=== PATIENT | female | born 1965 | race Caucasian/White ===

== ENCOUNTER 2020-02-16 23:11 | Emergency (ER) | payer OTHER ==
[2020-02-16 23:26] VITALS: BP 150/94; PULSE 79
[2020-02-17] MEDS ORDERED: Benztropine 1 MG Tab PO STA (00:03)
[2020-02-17] MEDS ORDERED: Ondansetron 4 MG/2 ML SDV IVPUSH ONE (00:03)
[2020-02-17] MEDS ORDERED: Sodium Chloride 0.9% 1,000 ML IV ONE (00:03)
[2020-02-17] MEDS ORDERED: Haloperidol Lactate 5 MG/ML SDV IM ONE (00:03)
--- NOTE | 2020-02-17 00:08 | EDM.PDOC ---
ED HPI GENERAL MEDICAL PROBLEM - General Chief Complaint: Allergic Reaction Stated Complaint: HEADACHE/NAUSEA Time Seen by Provider: 02/16/20 23:21 Source of Information: Reports: Patient History Limitations: Reports: No Limitations - History of Present Illness INITIAL COMMENTS - FREE TEXT/NARRATIVE: Mrs. Medina is a very pleasant 54-year-old woman with a past medical history sig nificant for migraine headaches, who now presents to the ED with a concern of a possible allergic reaction. She states that she notes relatively mild migraines about every 2 months, with her last bad migraine back in 05/27/2016, at which time she was seen by me in this ED. A CT of her head at that time was negative, and her symptoms improved after IM Haldol, confirming a migrainous etiology of her headache. She was prescribed rizatriptan, which she still takes, and ordinarily works, however, she states that she developed a migraine this past , 02/12/2020, which has persisted ever since. She feels a sharp pain across her forehead. Her headache feels better if she is supine, otherwise, she has not identified any modifiers. She has had photophobia and mild photophobia. She has had nausea. Her current headache is the same as her usual migraines, except that this one did not respond to rizatriptan, and has persisted longer than usual. Because the rizatriptan was not working for her, she was seen at the walk-in clinic this past 02/15/2020, where she was prescribed prednisone 20 mg p.o. BID. She took 1 dose on Sunday afternoon, another dose at 2:00 this morning, then a third dose at 2:00 this afternoon, without any significant improvement of her symptoms, however, she then developed a tingling sensation in her mouth this evening. She felt like the inside of her mouth was swollen, however, both the tingling in the swelling sensation resolved prior to her arrival to the ED. No prior similar symptoms. Here in the ED, the patient's initial BP is found to be mildly elevated at 150/94, otherwise, she is hemodynamically stable, afebrile, saturating 94% on room air. Other than her migraine headache and associated symptoms, the patient denies having a recent fever, chills, sore throat, ear pain, nasal or sinus congestion, cough, dyspnea, chest pain, palpitations, nausea, vomiting, constipation, diarrhea, abdominal pain, urinary symptoms, recent weight gain or weight loss, recent bloody bowel movements or black bowel movements, recent joint aches, or rashes. The patient's PCP is Erum Childs NP. Treatments CHIROPRACTIC PRACTICE MANAGER: Reports: NSAIDS, Other Medication(s) Headache Pain Score (Numeric/FACES): 8 - Related Data Allergies Allergy/AdvReac Type Severity Reaction Status Date / Time Penicillins Allergy Rash Verified 02/16/20 23:18 pseudoephedrine HCl Allergy Excitabilit Verified 02/16/20 23:18 [From Actifed] y triprolidine HCl Allergy Excitabilit Verified 02/16/20 23:18 [From Actifed] y Home Meds: Home Meds Enalapril [Vasotec] 5 mg PO DAILY 05/29/15 [History] Ibuprofen 600 mg PO BID PRN 05/29/15 [History] Levothyroxine Sodium 100 mcg PO DAILY 05/29/15 [History] Cholecalciferol (Vitamin D3) [Vitamin D] 1 tab PO DAILY 05/27/16 [History] Multivitamin [Multivitamins] 1 tab PO DAILY 05/27/16 [History] [place]-3 Fatty Acids [Fish Oil] 1 tab PO DAILY 05/27/16 [History] Rizatriptan Benzoate [Rizatriptan] 1 tab PO Q2H PRN #3 tab.rapdis 05/27/16 [Rx] predniSONE [Prednisone] 20 mg PO ASDIRECTED 02/16/20 [History] Past Medical History HEENT History: Reports: Impaired Vision Cardiovascular History: Reports: Hypertension Musculoskeletal History: Reports: Osteoarthritis Neurological History: Reports: Migraines Endocrine/Metabolic History: Reports: Hypothyroidism (following partial thyroidectomy) - Infectious Disease History Infectious Disease History: Reports: Chicken Pox, Mumps - Past Surgical History HEENT Surgical History: Reports: Oral Surgery (dental extractions), Tonsillectomy GI Surgical History: Reports: Hernia, Inguinal (right, at 5 mos old) Female Surgical History: Reports: Section (x 1) Endocrine Surgical History: Reports: Thyroidectomy (partial) Social & Family History - Family History Family Medical History: Noncontributory Cardiac: Reports: Hypertension Oncologic: Reports: Pancreatic - Tobacco Use Tobacco Use Status *Q: Never Tobacco User - Caffeine Use Caffeine Use: Reports: Coffee - Alcohol Use Alcohol Use History: Yes Alcohol Use Frequency: Socially - Recreational Drug Use Recreational Drug Use: No - Living Situation & Occupation Living situation: Reports: , with Spouse Occupation: Retired ED ROS GENERAL - Review of Systems Review Of Systems: Comprehensive ROS is negative, except as noted in HPI. - Physical Exam Exam: See Below Exam Limited By: No Limitations General Appearance: Alert, WD/WN, No Apparent Distress Eye Exam: Bilateral Eye: EOMI, Normal Inspection, PERRL Ears: Normal External Exam, Hearing Grossly Normal Nose: Normal Inspection Throat/Mouth: Normal Inspection, Normal Lips (No lip swelling), Normal Teeth, Normal Gums, Normal Oropharynx (No uvular swelling), Normal Voice, No Airway Compromise Head Exam: Atraumatic, Normocephalic Neck: Normal Inspection, Full Range of Motion Respiratory/Chest: No Respiratory Distress, Lungs Clear, Normal Breath Sounds, No Accessory Muscle Use Cardiovascular: Normal Peripheral Pulses, Regular Rate, Rhythm, No Edema, No Gallop, No JVD, No Murmur, No Rub GI/Abdominal: Normal Bowel Sounds, Soft, Non-Tender, No Organomegaly, No Distention, No Abnormal Bruit, No Mass Neuro Exam (Abbreviated): Alert, Oriented, CN II-XII Intact, Normal Cognition, No Motor/Sensory Deficits Back Exam: Normal Inspection, Full Range of Motion, NT Extremities: Normal Inspection, Normal Range of Motion, No Pedal Edema, Normal Capillary Refill Psychiatric: Normal Affect Skin Exam: Warm, Dry, Intact, Normal Color, No Rash Course - Vital Signs Last Recorded V/S: Last Vital Signs Temp 36.4 C 02/16/20 23:24 Pulse 79 02/16/20 23:24 Resp 18 02/16/20 23:24 BP 150/94 H 02/16/20 23:24 Pulse Ox 94 L 02/16/20 23:24 - Orders/Labs/Meds Orders: Active Orders 24 hr Category Date Time Status Ondansetron [Zofran ODT] Med 02/17/20 01:18 Once 4 mg PO ONETIME ONE Meds: Medications Discontinued Medications Generic Name Dose Route Start Last Admin Trade Name Freq PRN Reason Stop Dose Admin Benztropine Mesylate 1 mg 02/17/20 00:03 10/27/20 00:26 Cogentin PO 02/17/20 00:04 1 mg ONETIME STA Administration Haloperidol Lactate 5 mg 02/17/20 00:03 02/17/20 00:13 Haldol IM 02/17/20 00:04 5 mg ONETIME ONE Administration Sodium Chloride 1,000 mls @ 999 mls/hr 02/17/20 00:03 02/17/20 00:13 Normal Saline IV 02/17/20 01:03 999 mls/hr ONETIME ONE Administration Ondansetron HCl 4 mg 02/17/20 00:03 02/17/20 00:13 Zofran IVPUSH 02/17/20 00:04 4 mg ONETIME ONE Administration - Re-Assessments/Exams Free Text/Narrative Re-Assessment/Exam: 02/17/20 00:05 As above, the patient has had a headache typical for her migraines since , except that this 1 has lasted longer than usual and did not respond to rizatriptan. I do not believe that the tingling that she felt in her mouth earlier tonight, but which has since resolved, was an allergic reaction, since she had no pruritus, urticaria, other signs of angioedema, dyspnea, wheezing, or gastric distress, and her symptoms resolved without treatment. Additionally, while it is theoretically possible to have an allergic reaction to prednisone, it is highly unlikely. I think it is far more likely that the tingling that she experienced was a neurologic manifestation of the migraine itself. To that end, I have recommended treatment with Haldol, Cogentin, Zofran, and IV fluid, since that combination worked well for her the last time she was seen in this ED, on 05/27/2016. The patient agreed. Since the CT of her head at that time was normal, and her neurologic examination is normal today, I do not see an indication for a repeat emergency CT of the head. 02/17/20 01:02 Following IM Haldol, the patient states that her headache is not completely resolved, but it has improved significantly. She feels well enough to go home. I recommended that she stay adequately hydrated and get plenty of rest in a dark, quiet place. She may continue to take rizatriptan, if needed, however, I am recommending that she discontinue the prednisone, as it doesn't seem to be providing any benefit. Departure - Departure Time of Disposition: 01:03 Disposition: Home, Self-Care 01 Condition: Good Clinical Impression: Migraine headache - Discharge Information *PRESCRIPTION DRUG MONITORING PROGRAM REVIEWED*: Not Applicable *COPY OF PRESCRIPTION DRUG MONITORING REPORT IN PATIENT TREMAYNE: Not Applicable Instructions: Migraine Headache, [id number] Referrals: Erum Childs PATTERN RULER [Primary Care Provider] - Forms: ED Department Discharge Additional Instructions: You were seen in the emergency room for a migraine headache since , 02/12/2020, then the development of a tingling sensation in your mouth tonight. Based on your history and physical examination, the tingling sensation was felt to be most likely due to a neurologic manifestation of your migraine, and not physician relations representative of an adverse reaction to prednisone that you were prescribed on Sunday. Your headache improved following IM Haldol. We recommend that you stay adequately hydrated and get plenty of rest in a dark, quiet place, until your headache resolves. You may continue to take rizatriptan if needed, however, we recommend that you discontinue the prednisone. If any other problems, please do not hesitate to return to the ER. Sepsis Event Note (ED) - Evaluation Sepsis Screening Result: No Definite Risk - Focused Exam Vital Signs: Vital Signs Temp Pulse Resp BP Pulse Ox 02/16/20 23:24 36.4 C 79 18 150/94 H 94 L - My Orders Last 24 Hours: My Active Orders 02/17/20 01:18 Ondansetron [Zofran ODT] 4 mg PO ONETIME ONE - Assessment/Plan Last 24 Hours: My Active Orders 02/17/20 01:18 Ondansetron [Zofran ODT] 4 mg PO ONETIME ONE
[2020-02-17] MEDS ORDERED: Ondansetron 4 MG Tab.DIS PO ONE (01:18)
== END 2020-02-17 01:23 | disposition home or self-care (01) ==
LOC: JD.ED 23:11
DX: G43.909 Migraine, unspecified, not intractable, without status migrainosus (principal); I10 Essential (primary) hypertension; E03.9 Hypothyroidism, unspecified; Z88.0 Allergy status to penicillin; Z88.8 Allergy status to other drugs, medicaments and biological substances; Z98.890 Other specified postprocedural states; Z79.899 Other long term (current) drug therapy
CPT/HCPCS: 96372; 96374; 99283; A9270; J1630; J2405; J7030

== ENCOUNTER 2024-11-18 07:02 | Day surgery (SDC) | payer BC ==
[~2024-11-18 07:02] MED LIST: Lidocaine 1% 4 ML ONE; Propofol 200 MG/20 ML SDV ONE; Sodium Chloride 0.9% 10 ML Syringe FLUSH PRN; Sodium Chloride 0.9% 10 ML Syringe FLUSH SCH
[2024-11-18] MEDS: Lactated Ringers 1,000 ML IV SCH (07:15)
[2024-11-18] MEDS ORDERED: Ondansetron 4 MG/2 ML SDV ONE (07:20)
[2024-11-18 09:30] VITALS: BP 108/70; PULSE 63
== END 2024-11-18 08:29 | disposition home or self-care (01) ==
LOC: JD.SDS 07:02
PROVIDERS: ATTEND Surgery
DX: Z12.11 Encounter for screening for malignant neoplasm of colon (principal); I10 Essential (primary) hypertension; E03.9 Hypothyroidism, unspecified; Z88.0 Allergy status to penicillin; Z88.8 Allergy status to other drugs, medicaments and biological substances; Z79.899 Other long term (current) drug therapy; Z79.890 Hormone replacement therapy
CPT/HCPCS: 00812; J2003; J2405; J2704; J7120